=== PATIENT | female | born 1950 | race Caucasian/White ===

== ENCOUNTER 2024-04-07 09:58 | Day surgery (SDC) | payer MEDICARE, OTHER ==
[2024-04-01 12:42] VITALS: BMI 31.6
[2024-04-07] MEDS ORDERED: CEFAZOLIN 2 GM VIAL ONE (11:14)
[2024-04-07] MEDS ORDERED: Bupivacaine PF 0.5% 30 ML VIAL ONE (11:14)
[2024-04-07] MEDS ORDERED: fentaNYL 50 mcg/mL 1 mL Vial ONE ×2 (11:50→13:46)
[2024-04-07] MEDS ORDERED: PROPOFOL 20 ML ONE (11:50)
[2024-04-07] MEDS ORDERED: Rocuronium Bromide 10 MG/ML (10ML VIAL) ONE (11:50)
[2024-04-07] MEDS ORDERED: PHENYLEPHRINE-NS 100 MCG/ML 10 ML SYRINGE ONE (11:52)
[2024-04-07] MEDS ORDERED: ePHEDrine Sulfate 50 MG/10 ML VIAL ONE (12:02)
[2024-04-07] MEDS ORDERED: Ketorolac Tromethamine 30 MG (1 mL) VIAL ONE (12:37)
[2024-04-07] MEDS ORDERED: Dexamethasone 4 mg/ml Vial ONE (12:37)
[2024-04-07] MEDS ORDERED: Ondansetron PF 4 MG/2 ML Vial ONE (12:37)
[2024-04-07] MEDS ORDERED: SUGAMMADEX SODIUM 200 MG/2 ML VIAL ONE (13:02)
[2024-04-07] MEDS ORDERED: Ropivacaine 0.2% 550 ML 550 ML NERVE BLCK SCH (13:30)
[2024-04-07] MEDS ORDERED: Promethazine HCl 25 MG/ML VIAL IM PRN (13:30)
[2024-04-07] MEDS ORDERED: Zolpidem Tartrate 5 MG TAB PO PRN (13:30)
[2024-04-07] MEDS ORDERED: Ondansetron PF 4 MG/2 ML Vial IVP PRN (13:30)
== END 2024-04-07 15:00 | disposition home or self-care (01) ==
LOC: CSHSDC 09:58
PROVIDERS: ATTEND Podiatrist Foot & Ankle Surgery
PROC: 0QBM0ZZ Excision of Left Tarsal, Open Approach (ICD-10-PCS; principal; 2024-04-07)
PROC: 0LMP0ZZ Reattachment of Left Lower Leg Tendon, Open Approach (ICD-10-PCS; 2024-04-07)
DX: M76.62 Achilles tendinitis, left leg (principal); M77.32 Calcaneal spur, left foot; M25.579 Pain in unspecified ankle and joints of unspecified foot; M92.60 Juvenile osteochondrosis of tarsus, unspecified ankle; E78.00 Pure hypercholesterolemia, unspecified; Z79.899 Other long term (current) drug therapy
CPT/HCPCS: 27654; 28119; 73600; A4306; J0665; J1100; J1885; J2405; J2704; J2795; J3010; C1713